=== PATIENT | male | born 1945 | race Caucasian/White ===

== ENCOUNTER 2016-07-10 07:15 | Inpatient (IN) | payer OTHER ==
[2016-07-05 10:00] LABS: BASOPHILS 0.2 %; BASOPHILS ABSOLUTE 0.01 10/3/uL (0.0-0.16); EOSINOPHILS 3.1 %; HEMATOCRIT 47.7 % (40.0-51.0); IMMATURE GRANULOCYTES 0.2 %; IMMATURE GRANULOCYTES ABSOLUTE 0.01 10/3/uL (0.0-0.11); LYMPHOCYTES 29.2 %; LYMPHOCYTES ABSOLUTE 1.89 10/3/uL (0.67-4.30); MEAN CORPUS HGB CONC 33.5 g/dL (32.0-36.0); MEAN CORPUSCULAR VOLUME 92.4 fL (80-100); MEAN PLATELET VOLUME 10.2 fL (9.2-13.0); MONOCYTES 7.1 %; MONOCYTES ABSOLUTE 0.46 10/3/uL (0.21-1.20); NEUTROPHILS 60.2 %; PLATELET COUNT 336 10/3/uL (150-400); RBC DISTRIBUTION WIDTH 13.1 % (12.0-16.0); RED CELL COUNT 5.16 10/6/uL (4.7-6.1); WHITE BLOOD CELLS 6.5 10/3/uL (4.5-10.5)
[2016-07-05 10:01] LABS: MANUAL DIFF NO %
[2016-07-05 10:07] LABS: PROTIME (NOT ORD) 13.4 SEC (12.0-14.5)
[2016-07-05 10:12] LABS: BUN (BLOOD UREA NITROGEN) 17 MG/DL (6-23); CALCIUM, SERUM 8.7 MG/DL (8.5-10.4); CHLORIDE, SERUM 104 MMOL/L (96-112); CO2 (CARBON DIOXIDE) 29 MMOL/L (24-34); CREATININE 1.27 MG/DL (0.70-1.30); GFR AFRICAN AMERICAN 65 ML/MIN (>=60); GFR NON AFRICAN AMERICAN 56 ML/MIN (>=60); GLUCOSE, SERUM 91 MG/DL (60-99); POTASSIUM, SERUM 4.6 MMOL/L (3.5-5.3); SODIUM, SERUM 140 MMOL/L (135-148)
--- NOTE | ~2016-07-10 | DS ---
Discharge Summary [facility] [address] [place]. [address] NAME: CHRISTIAN JACOBS : 45 STATUS : DIS IN PAT#: [id number] AGE: 71 ADM/REG DATE : 07/10/16 MR#: [id number] REPORT SERV DATE: 07/25/16 DICTATED BY: TOM BRUNNER DATE: 07/24/16 REPORT STATUS : Draft TRANSCRIBED BY: FRED DATE: 07/24/16 Data Collection from hospitalization DISCHARGE DIAGNOSES: 1. 90% stenosis of right internal carotid artery, status post endarterectomy, status post right internal carotid artery stent. 2. Right femoral pseudoaneurysm, status post right common femoral artery stent. 3. Former smoker. 4. History of transient ischemic attacks. 5. Coronary artery disease, status post coronary artery bypass grafting. 6. History of myocardial infarction. 7. History of atrial fibrillation. 8. Peripheral arterial disease. 9. Chronic obstructive pulmonary disease. 10.History of alcohol abuse. CONSULTATIONS: Kelly Yang M.D. PROCEDURES PERFORMED: 1. Arch aortogram with right common carotid artery catheterization and angiography, right internal carotid artery distal embolic protection filter was 5 mm AngioGuard, placement of right internal carotid artery stent primary 7 x 30 with secondary angioplasty 4 x 2 balloon dilating to 4.2 mm on 07/10/2016. 2. Aortogram, right femoral angiogram, 6 x 5 cm Viabahn stent placement in the right common femoral artery, balloon angioplasty 5 x 60 mm balloon in the right common femoral artery on 07/13/2016. 3. Right groin Doppler ultrasound on 07/11/2016. 4. Right groin Doppler ultrasound on 07/12/2016. MEDICATIONS: Aspirin 81 mg daily, Lipitor 40 mg daily, Coreg 3.125 mg twice a day, Plavix 75 mg daily, and Percocet 5/325 one tablet every four hours as needed. CONDITION AT DISCHARGE: Stable. DISPOSITION: The patient was discharged home on a low-sodium, low-cholesterol diet with activities as instructed. He would follow up with Dr. Tom Brunner two to four weeks following discharge. He would follow up with his primary care physician two weeks following discharge. HOSPITAL COURSE: This is a 71-year-old man who presented with evidence of high-grade right internal carotid artery obstruction, status post carotid endarterectomy in the remote past. Recommendations were made for angiography to help further define the carotid system with potential for endovascular repair. Treatment options were discussed and it was elected to proceed with surgical intervention. He was admitted to the hospital at this time for further evaluation and treatment. Upon admission, the patient was taken to the endovascular operating room where he underwent the above-mentioned procedure. He tolerated this well, and there were no complications. Discharge Summary [address] [place]. [address] NAME: CHRISTIAN JACOBS : 45 STATUS : DIS IN PAT#: [id number] AGE: 71 ADM/REG DATE : 07/10/16 MR#: [id number] REPORT SERV DATE: 07/25/16 DICTATED BY: TOM BRUNNER DATE: 07/24/16 REPORT STATUS : Draft TRANSCRIBED BY: FRED DATE: 07/24/16 The patient was seen in consultation by Dr. Kelly Yang regarding atrial fibrillation and postop carotid artery stenting. Postoperatively, the patient had gone into atrial fibrillation with rapid ventricular response. With intravenous Cardizem drip, he went back into a sinus rhythm. The patient has a history of coronary artery disease and a history of coronary artery bypass grafting in 2008 after he suffered a myocardial infarction. He had undergone two-vessel coronary artery bypass by Dr. Black. He had been seen at that time by Dr. Nelson. He was subsequently followed at the [facility] and by his primary care physician and had not seen a delicatessen goods stock clerk recently. He has underlying COPD with a long history of smoking of three packs per day up until 2008. He also has a history of alcohol abuse. He has advanced peripheral artery disease with some weakness in the lower extremities and has some pending procedure in the lower extremities also. He has a history of remote CVA in 2008. He reportedly is able to walk without any support. He denied any recent chest pain, palpitations, or syncope. He does have some mild dyspnea on exertion. His electrolytes on 07/05/2016 as well as chest x-ray were normal. At that time, he was in a sinus rhythm. Hemoglobin at this time was 13.7. He was currently in a normal sinus rhythm. The patient was going to be continued on intravenous heparin for now. Aspirin and Plavix were continued. We were going to check his electrolytes. TSH would be checked as well as echocardiogram and electrocardiogram. He was going to be started on Toprol-XL. Statin therapy was going to be continued. It was felt that he would likely benefit from long-term anticoagulation. On postop day #1, he had no chest pain. He was stable from a cardiac standpoint. He remained in a normal sinus rhythm. Toprol-XL was decreased. The patient had gotten out of bed that morning and felt a "pop" in the right groin (access site). He became hypotensive. Pressure was held for 45 minutes. A fluid bolus was given. He had no neurologic symptoms. Right groin Doppler ultrasound was performed. Findings were compatible with right groin pseudoaneurysm, measuring up to 1.7 x 1 x 3 cm with a neck measuring 0.16 cm in width by 0.29 cm in length. This appeared to be supplied by the right common femoral artery. No AV fistula was identified in the right groin region. On 08/01/2016, he had no palpitations or chest pain. Right groin Doppler ultrasound was performed to recheck the right groin pseudoaneurysm. There was a similar right groin pseudoaneurysm supplied by the right common femoral artery measuring up to 2 x 0.7 x 1.9 cm, the neck measured up to 0.16 cm in width by 0.2 cm in length. Again, this appeared to be supplied by the right common femoral artery. On 07/13/2016, it was felt that the patient would need to undergo right femoral pseudoaneurysm repair including stent placement open and observation. The patient agreed to proceed. He was taken to the operating room by Dr. Tomeka Cavazos where he underwent the above-mentioned procedures. He tolerated this well, and there were no complications. Discharge planning was performed. On 07/14/2016, Plavix, aspirin, and Percocet were continued. Discharge instructions were given. Due to his improved and stable condition, he was discharged home with the above-stated instructions. Information collected by: Katherine Newell I submit the above information as my discharge summary. TG/MODL Discharge Summary [place] [id number] [facility] [place] [place]. [address] NAME: CHRISTIAN JACOBS GIA : 45 STATUS : DIS IN PAT#: [id number] AGE: 71 ADM/REG DATE : 07/10/16 MR#: [id number] REPORT SERV DATE: 07/25/16 DICTATED BY: TOM BRUNNER DATE: 07/24/16 REPORT STATUS : Draft TRANSCRIBED BY: FRED DATE: 07/24/16 Tom Brunner M.D. / [id number] CC: Shine Murillo M.D. CASE TEDDER, MD
--- NOTE | ~2016-07-10 | CN ---
Consultation Report [facility] [address] [place]. [address] NAME: CHRISTIAN JACOBS : 45 STATUS : ADM IN PAT#: [id number] AGE: 71 ADM/REG DATE : 07/10/16 MR#: [id number] REPORT SERV DATE: 07/11/16 DICTATED BY: GERARDO HOPE DATE: 07/10/16 REPORT STATUS : Draft TRANSCRIBED BY: MODL DATE: 07/10/16 CARDIOLOGY CONSULT DATE OF CONSULTATION: REFERRING REASON: Atrial fibrillation post carotid endarterectomy. HISTORY OF PRESENT ILLNESS: This is a 71-year-old white gentleman who is very poor historian, but who just underwent today right carotid endarterectomy for critical stenosis by Dr. Brunner. Postoperatively, he went to AFib with RVR. With intravenous Cardizem drip, he went back to sinus rhythm. He is very poor historian, but I have reviewed limited records from [facility] and from Dr. Brunner. He has had known coronary artery disease, history of CABG in 2008, after he suffered myocardial infarction. He underwent two vessel CABG by Dr. Black. At that time, he has been seen by Dr. Nelson. Subsequently being followed at the [facility] and by his primary care physician, he has not seen any radio television technical director recently. He has underlying COPD with long history of smoking history three packs a day until 2008, for 24 years. He also has some history of alcohol abuse. The patient has advanced peripheral artery disease with some weakness in his lower extremities and had some pending procedure in lower extremities also. He has a remote history of CVA in 2008. He reportedly is walking without any support. Denies any recent chest pain, palpitation, or syncope. He has some mild dyspnea on exertion. His electrolytes in 07/05/2016, as well as the chest x-ray were normal. At that time, he was in sinus rhythm. Today, hemoglobin is 13.7. Electrolytes are not obtained. PAST MEDICAL HISTORY: 1. Coronary artery disease. 2. History of CA in 2008, with subsequent two-vessel CABG by Dr. Black. 3. Peripheral artery disease is now status post right carotid endarterectomy by Dr. Brunner. 4. COPD. 5. Remote history of smoking dependency. There is history of alcohol abuse. SOCIAL HISTORY: The patient is . He quit smoking in 2008, smoked 24 years 3 packs a day. He also has previously problem with alcoholism, but denies drinking alcohol recently. He walks without any support. He has been followed at the [facility]. FAMILY HISTORY: Negative for sudden cardiac or premature coronary artery disease in family. HOME MEDICATIONS: Aspirin 81 mg once a day, atorvastatin 40 mg once a day, Plavix 75 mg once a day. PHYSICAL EXAMINATION: GENERAL: No acute distress. Elderly gentleman who looks older than his biological age. VITAL SIGNS: Blood pressure 150/52, heart rate 79 and regular. Consultation Report [place] [id number] [facility] [place]. [address] NAME: CHRISTIAN JACOBS : 45 STATUS : ADM IN [facility]#: [id number] AGE: 71 ADM/REG DATE : 07/10/16 MR#: [id number] REPORT SERV DATE: 07/11/16 DICTATED BY: GERARDO HOPE DATE: 07/10/16 REPORT STATUS : Draft TRANSCRIBED BY: FRED DATE: 07/10/16 HEENT - Pupils reactive to light and accommodation. Moist mucosa membrane. NECK: No JVD. Normal carotid upstroke. No carotid bruits. LUNGS: Decreased breath sounds, bibasilar, but no crackles. COR: Normal S1, S2. No S3 or S4. No significant rub or murmurs. ABDOMEN: Obese, distended, nontender. EXTREMITIES: Lower extremity, decreased pedal pulses bilaterally, but no edema. SKIN: Warm with normal turgor. MS - No kyphosis. NEURO/PSY - Alert and oriented. Nonfocal. DATA: Hemoglobin 13.7 on monitor. He is now in normal sinus rhythm. Previously, he has been in AFib with RVR. Electrocardiogram on 07/03/2016, revealed normal sinus rhythm at 71 beats per minute with septal myocardial infarction. ASSESSMENT AND PLAN: 1. Episode of postoperative atrial fibrillation, normal sinus rhythm currently. 2. Status post right carotid endarterectomy by Dr. Brunner for critical stenosis. 3. Remote history of cerebrovascular accident. 4. Coronary artery disease with remote history of coronary artery bypass graft. The patient will be continued on intravenous heparin for now. He will continue aspirin and Plavix. He will have electrolytes checked, TSH checked, echocardiogram, and electrocardiogram in the morning. We will start him on Toprol-XL 25 mg once a day. We will continue statin therapy. Likely, he may benefit from long-term anticoagulation. We may consider newer agents if okay with Dr. Brunner. We will follow the patient with you. JONNATHAN/FRED Gerardo Hope M.D. / [id number] CC: Tom Brunner M.D.
--- NOTE | ~2016-07-10 | OP ---
Record Of Operation [facility] [address] [place]. [address] NAME: ALCIDES IGNACIO : 45 STATUS : ADM IN PAT#: [id number] AGE: 71 ADM/REG DATE : 07/10/16 MR#: [id number] REPORT SERV DATE: 07/14/16 DICTATED BY: DATE: REPORT STATUS : Draft TRANSCRIBED BY: MODL DATE: 07/13/16 DATE OF PROCEDURE: 07/13/2016 PREOPERATIVE DIAGNOSIS: Right femoral pseudoaneurysm. POSTOPERATIVE DIAGNOSIS: Right femoral pseudoaneurysm. PROCEDURES: 1. Aortogram. 2. Right femoral angiogram. 3. 6 x 5 cm Viabahn stent placement in the right common femoral artery. 4. Balloon angioplasty, 5 x 60 mm balloon in the right common femoral artery. SURGEON: Tomeka Cavazos MD ANESTHESIA: Local MAC. IV FLUIDS: 600 mL. EBL: 5 mL. SPECIMENS: None. COMPLICATION: None. BRIEF HISTORY: Alcides Ignacio is a 71-year-old gentleman who underwent stenting of his carotid artery three days ago. He developed atrial fibrillation postop and was heparinized and then developed a right femoral pseudoaneurysm. There was increase in size to 2.4 cm. He was considering the risk and benefits of repair including stent placement open and observation. He elected to proceed with endovascular treatment. DESCRIPTION OF PROCEDURE: The patient was brought to the operative room, placed in the supine position on the operating room table. Anesthesia was introduced and his bilateral groins were prepped and draped in usual sterile fashion. A time-out was performed to identify correct patient, procedure, position, and location. The patient did receive 2 g of Ancef antibiotic. Using ultrasound guidance access, the left common femoral artery was identified and accessed. The skin was anesthetized with local anesthetic. A micropuncture wire and sheath were then placed through which a YoPro Globalson wire was used to upsize to a 6- Vietnamese short sheath. The UF catheter was placed at the aortic bifurcation. An aortogram was performed which demonstrated patent iliac systems bilaterally. A stiff guidewire was then placed over the aortic bifurcation into the right profunda artery over which a long 6, 45 Vietnamese sheath was exchanged for the short down into the right external iliac artery. Isolated femoral angiogram was obtained in multiple views which demonstrated pseudoaneurysm in the mid common femoral artery. A V18 wire was then exchanged through a TrailBlazer catheter over which a 6 mm x 5 cm Viabahn stent was placed and deployed within the right common femoral artery preserving the profunda artery. Followup angiogram demonstrated Record Of Operation [place] [address] [place]. [address] NAME: ALCIDES IGNACIO : 45 STATUS : ADM IN PAT#: [id number] AGE: 71 ADM/REG DATE : 07/10/16 MR#: [id number] REPORT SERV DATE: 07/14/16 DICTATED BY: DATE: REPORT STATUS : Draft TRANSCRIBED BY: MODL DATE: 07/13/16 improvement of the flow within the pseudoaneurysm, but still some flow. This was then balloon angioplastied with a 5 x 6 cm balloon with resolution of flow within the pseudoaneurysm. The 6-Vietnamese sheath was then withdrawn back into the left external iliac artery and then femoral angiogram was obtained. On this side, the common femoral artery is very calcified and small, thus it was elected to have full pressure. The sheath was removed and pressure was held for 20 minutes, and a pressure dressing was placed. The patient was then transferred to the recovery room in stable condition having tolerated the procedure well and there are no apparent complications. [facility]/FRED Tomeka Cavazos MD / [id number] CC: Tom Brunner M.D.
--- NOTE | ~2016-07-10 | OP ---
Record Of Operation [facility] [address] [place]. [address] NAME: CHRISTIAN JACOBS : 45 STATUS : ADM IN PAT#: [id number] AGE: 71 ADM/REG DATE : 07/10/16 MR#: [id number] REPORT SERV DATE: 07/10/16 DICTATED BY: TOM BRUNNER DATE: 07/10/16 REPORT STATUS : Draft TRANSCRIBED BY: MODL DATE: 07/10/16 DATE OF PROCEDURE: 07/10/2016 PREPROCEDURE DIAGNOSIS: High-grade recurrent right internal carotid artery obstruction. POSTOPERATIVE DIAGNOSIS: A 90% stenosis of the right internal carotid artery status post endarterectomy. PROCEDURES PERFORMED: 1. Arch aortogram with right common carotid artery catheterization and angiography. 2. Right internal carotid artery distal embolic protection filter with 5 mm AngioGuard. 3. Placement of a right internal carotid artery stent primary 7 x 30 with secondary angioplasty 4 x 2 balloon dilating to 4.2 mm. ANESTHESIA: Local with MAC. COMPLICATIONS: None. INDICATION FOR PROCEDURE: Secondary to this very pleasant 71-year-old gentleman presenting with evidence of high-grade right internal carotid artery obstructions, status post carotid endarterectomy in the remote past, recommendations were made for angiography to help further define the carotid system with potential for endovascular repair. Risks and benefits were discussed. Consent was obtained. DETAILS OF PROCEDURE: The patient was brought to the endovascular operating room, placed in supine position, and prepped and draped in routine sterile fashion to the bilateral groin region. The left femoral artery was then cannulated with a micropuncture needle followed by a wire and sheath. The catheter was then advanced into the arch of the aorta and 30-degree SCOTTISH arch arteriogram was then performed defining widely patent innominate, left common carotid, and left subclavian. Please note, the 5000 units of heparin were given and allowed to circulate. Next, the right common carotid artery was then cannulated with a Berenstein catheter. The arteriogram minute in the TORRES position defined evidence of a very tight 90%- 95% internal carotid artery obstruction. The sheath was then placed, and then over this, an AngioGuard was then passed into position through the stenosis into the distal internal carotid artery and the filter was deployed. Primary carotid stenting was then performed with a 7 x 30 stent to treating only the internal carotid artery. Post stent deployment, angioplasty was then performed with a 4 x 2 balloon dilating to 4.2 mm. With this completed, the patient remained neurologically intact and completion imaging showed wide patency of the stent. The filter was then removed. There was found to be minimally positive for debris. Next, the right groin was then arteriogramed and a StarClose was chosen for closure of the puncture site. The patient tolerated this well. Neurologically intact during the procedure. CL/MODL Record Of [address] [address] NAME: CHRISTIAN JACOBS : 45 STATUS : ADM IN [facility]#: [id number] AGE: 71 ADM/REG DATE : 07/10/16 MR#: [id number] REPORT SERV DATE: 07/10/16 DICTATED BY: TOM BRUNNER DATE: 07/10/16 REPORT STATUS : Draft TRANSCRIBED BY: FRED DATE: 07/10/16 Tom Brunner M.D. / [id number] CC: Tom Brunner M.D.
[~2016-07-10 07:15] MED LIST: ASAB PO; ASAEC PO; CELEXA20 PO; COREG12 PO; COREG6 PO; DENIES HOME MEDS; LIPITOR40 PO; LORTAB 5 PO; PLAVIX PO; PRAVAC PO
[2016-07-10 12:08] LABS: HEMOGLOBIN 13.7 g/dL (13.6-17.8)
[2016-07-10 12:15] LABS: HEMATOCRIT 41.2 % (40.0-51.0)
[2016-07-11 03:51] LABS: BUN (BLOOD UREA NITROGEN) 17 MG/DL (6-23); CALCIUM, SERUM 8.3 MG/DL (8.5-10.4); CHLORIDE, SERUM 108 MMOL/L (96-112); CREATININE 0.93 MG/DL (0.70-1.30); GFR AFRICAN AMERICAN 95 ML/MIN (>=60); GFR NON AFRICAN AMERICAN 82 ML/MIN (>=60); GLUCOSE, SERUM 89 MG/DL (60-99); POTASSIUM, SERUM 4.2 MMOL/L (3.5-5.3); SODIUM, SERUM 141 MMOL/L (135-148)
[2016-07-11 03:53] LABS: CO2 (CARBON DIOXIDE) 22 MMOL/L (24-34)
[2016-07-11 04:00] LABS: BUN (BLOOD UREA NITROGEN) 18 MG/DL (6-23); CALCIUM, SERUM 8.1 MG/DL (8.5-10.4); CHLORIDE, SERUM 107 MMOL/L (96-112); CO2 (CARBON DIOXIDE) 22 MMOL/L (24-34); CREATININE 1.09 MG/DL (0.70-1.30); GFR AFRICAN AMERICAN 79 ML/MIN (>=60); GFR NON AFRICAN AMERICAN 68 ML/MIN (>=60); POTASSIUM, SERUM 4.3 MMOL/L (3.5-5.3); SODIUM, SERUM 138 MMOL/L (135-148)
[2016-07-11 04:02] LABS: GLUCOSE, SERUM 136 MG/DL (60-99)
[2016-07-11 09:11] LABS: BASOPHILS 0.1 %; BASOPHILS ABSOLUTE 0.01 10/3/uL (0.0-0.16); EOSINOPHILS 0 %; HEMOGLOBIN 12.3 g/dL (13.6-17.8); IMMATURE GRANULOCYTES 0.3 %; IMMATURE GRANULOCYTES ABSOLUTE 0.05 10/3/uL (0.0-0.11); LYMPHOCYTES 4.1 %; LYMPHOCYTES ABSOLUTE 0.69 10/3/uL (0.67-4.30); MEAN CORPUS HGB CONC 33.5 g/dL (32.0-36.0); MEAN CORPUSCULAR HEMOGLOB 30.8 pg (26.0-34.0); MEAN CORPUSCULAR VOLUME 91.8 fL (80-100); MEAN PLATELET VOLUME 10.3 fL (9.2-13.0); MONOCYTES 6.2 %; MONOCYTES ABSOLUTE 1.05 10/3/uL (0.21-1.20); NEUTROPHILS 89.3 %; NEUTROPHILS ABSOLUTE 15.03 10/3/uL (2.02-8.40); PLATELET COUNT 305 10/3/uL (150-400); RBC DISTRIBUTION WIDTH 12.7 % (12.0-16.0)
[2016-07-11 09:14] LABS: HEMATOCRIT 36.7 % (40.0-51.0); MANUAL DIFF NO %; WHITE BLOOD CELLS 16.8 10/3/uL (4.5-10.5)
[2016-07-11 14:02] LABS: HEMOGLOBIN 11.8 g/dL (13.6-17.8)
[2016-07-12 10:48] LABS: BASOPHILS 0.1 %; BASOPHILS ABSOLUTE 0.01 10/3/uL (0.0-0.16); EOSINOPHILS 0.4 %; EOSINOPHILS ABSOLUTE 0.07 10/3/uL (0.0-0.53); HEMATOCRIT 34.8 % (40.0-51.0); HEMOGLOBIN 11.7 g/dL (13.6-17.8); IMMATURE GRANULOCYTES 0.3 %; IMMATURE GRANULOCYTES ABSOLUTE 0.04 10/3/uL (0.0-0.11); LYMPHOCYTES 8.2 %; LYMPHOCYTES ABSOLUTE 1.29 10/3/uL (0.67-4.30); MANUAL DIFF NO %; MEAN CORPUS HGB CONC 33.6 g/dL (32.0-36.0); MEAN CORPUSCULAR VOLUME 92.3 fL (80-100); MEAN PLATELET VOLUME 10.6 fL (9.2-13.0); MONOCYTES 9.5 %; MONOCYTES ABSOLUTE 1.49 10/3/uL (0.21-1.20); NEUTROPHILS 81.5 %; NEUTROPHILS ABSOLUTE 12.82 10/3/uL (2.02-8.40); PLATELET COUNT 300 10/3/uL (150-400); RBC DISTRIBUTION WIDTH 12.8 % (12.0-16.0); RED CELL COUNT 3.77 10/6/uL (4.7-6.1); WHITE BLOOD CELLS 15.7 10/3/uL (4.5-10.5)
[2016-07-12 10:58] LABS: BUN (BLOOD UREA NITROGEN) 24 MG/DL (6-23); CALCIUM, SERUM 8.8 MG/DL (8.5-10.4); CHLORIDE, SERUM 105 MMOL/L (96-112); CO2 (CARBON DIOXIDE) 27 MMOL/L (24-34); CREATININE 1.12 MG/DL (0.70-1.30); GFR AFRICAN AMERICAN 76 ML/MIN (>=60); GFR NON AFRICAN AMERICAN 66 ML/MIN (>=60); GLUCOSE, SERUM 136 MG/DL (60-99); POTASSIUM, SERUM 4.5 MMOL/L (3.5-5.3); SODIUM, SERUM 139 MMOL/L (135-148)
[2016-07-12 12:30] LABS: A/G RATIO 0.8 (0.7-1.9); ALBUMIN 2.6 G/DL (3.5-5.0); ALKALINE PHOSPHATASE 76 U/L (45-117); GLOBULIN 3.2 G/DL (2.5-4.1); SGOT(AST) 10 U/L (5-40); SGPT(ALT) 11 U/L (5-65); TOTAL BILIRUBIN 0.7 MG/DL (0-1.2); TOTAL PROTEIN 5.8 G/DL (6.0-8.5)
[2016-07-13 04:36] LABS: BASOPHILS 0.1 %; BASOPHILS ABSOLUTE 0.01 10/3/uL (0.0-0.16); EOSINOPHILS 1.7 %; EOSINOPHILS ABSOLUTE 0.25 10/3/uL (0.0-0.53); HEMATOCRIT 34.5 % (40.0-51.0); HEMOGLOBIN 11.3 g/dL (13.6-17.8); IMMATURE GRANULOCYTES 0.3 %; IMMATURE GRANULOCYTES ABSOLUTE 0.04 10/3/uL (0.0-0.11); LYMPHOCYTES 13.9 %; MEAN CORPUS HGB CONC 32.8 g/dL (32.0-36.0); MEAN CORPUSCULAR HEMOGLOB 30.2 pg (26.0-34.0); MEAN CORPUSCULAR VOLUME 92.2 fL (80-100); MEAN PLATELET VOLUME 10.9 fL (9.2-13.0); MONOCYTES 10.3 %; MONOCYTES ABSOLUTE 1.55 10/3/uL (0.21-1.20); NEUTROPHILS 73.7 %; NEUTROPHILS ABSOLUTE 11.11 10/3/uL (2.02-8.40); PLATELET COUNT 325 10/3/uL (150-400); RED CELL COUNT 3.74 10/6/uL (4.7-6.1); WHITE BLOOD CELLS 15.1 10/3/uL (4.5-10.5)
[2016-07-13 04:38] LABS: MANUAL DIFF NO %
[2016-07-13 04:48] LABS: BUN (BLOOD UREA NITROGEN) 22 MG/DL (6-23); CALCIUM, SERUM 8.8 MG/DL (8.5-10.4); CHLORIDE, SERUM 105 MMOL/L (96-112); CO2 (CARBON DIOXIDE) 31 MMOL/L (24-34); CREATININE 1.09 MG/DL (0.70-1.30); GFR AFRICAN AMERICAN 79 ML/MIN (>=60); GFR NON AFRICAN AMERICAN 68 ML/MIN (>=60); GLUCOSE, SERUM 134 MG/DL (60-99); POTASSIUM, SERUM 4.5 MMOL/L (3.5-5.3); SODIUM, SERUM 141 MMOL/L (135-148)
[2016-07-14 03:42] LABS: BASOPHILS 0.2 %; BASOPHILS ABSOLUTE 0.02 10/3/uL (0.0-0.16); EOSINOPHILS 4.6 %; HEMATOCRIT 31.8 % (40.0-51.0); HEMOGLOBIN 10.6 g/dL (13.6-17.8); IMMATURE GRANULOCYTES 0.3 %; IMMATURE GRANULOCYTES ABSOLUTE 0.03 10/3/uL (0.0-0.11); LYMPHOCYTES 16.7 %; LYMPHOCYTES ABSOLUTE 1.81 10/3/uL (0.67-4.30); MEAN CORPUS HGB CONC 33.3 g/dL (32.0-36.0); MEAN CORPUSCULAR HEMOGLOB 30.8 pg (26.0-34.0); MEAN CORPUSCULAR VOLUME 92.4 fL (80-100); MEAN PLATELET VOLUME 10.6 fL (9.2-13.0); MONOCYTES 9.1 %; MONOCYTES ABSOLUTE 0.98 10/3/uL (0.21-1.20); NEUTROPHILS 69.1 %; NEUTROPHILS ABSOLUTE 7.47 10/3/uL (2.02-8.40); PLATELET COUNT 302 10/3/uL (150-400); RED CELL COUNT 3.44 10/6/uL (4.7-6.1); WHITE BLOOD CELLS 10.8 10/3/uL (4.5-10.5)
[2016-07-14 03:43] LABS: MANUAL DIFF NO %
[2016-07-14 03:54] LABS: CALCIUM, SERUM 8.1 MG/DL (8.5-10.4); CHLORIDE, SERUM 106 MMOL/L (96-112); CO2 (CARBON DIOXIDE) 29 MMOL/L (24-34); CREATININE 1.01 MG/DL (0.70-1.30); GFR AFRICAN AMERICAN 86 ML/MIN (>=60); GFR NON AFRICAN AMERICAN 74 ML/MIN (>=60); GLUCOSE, SERUM 115 MG/DL (60-99); SODIUM, SERUM 140 MMOL/L (135-148)
[2016-07-14 03:56] LABS: BUN (BLOOD UREA NITROGEN) 17 MG/DL (6-23)
[2016-07-14] MEDS ORDERED: COREG3 PO (09:30)
[2016-07-14] MEDS ORDERED: PCET PO (09:30)
== END 2016-07-14 13:00 | disposition home or self-care (01) | DRG 35 ==
LOC: SDC 07:15 → SDC/OF 11:02 → CVICU 13:10
PROVIDERS: Specialist
PROC: 037K3DZ Dilation of Right Internal Carotid Artery with Intraluminal Device, Percutaneous Approach (ICD-10-PCS; principal; 2016-07-10 10:00)
DX: I65.21 Occlusion and stenosis of right carotid artery (principal); I97.620 Postprocedural hemorrhage of a circulatory system organ or structure following other procedure; I95.9 Hypotension, unspecified; I97.89 Other postprocedural complications and disorders of the circulatory system, not elsewhere classified; J44.9 Chronic obstructive pulmonary disease, unspecified; I25.10 Atherosclerotic heart disease of native coronary artery without angina pectoris; I25.2 Old myocardial infarction; I73.9 Peripheral vascular disease, unspecified; Z87.891 Personal history of nicotine dependence; Z95.1 Presence of aortocoronary bypass graft; Z86.73 Personal history of transient ischemic attack (TIA), and cerebral infarction without residual deficits; Z79.82 Long term (current) use of aspirin; Z79.899 Other long term (current) drug therapy; Z79.02 Long term (current) use of antithrombotics/antiplatelets
CPT/HCPCS: 36221; 36246; 36415; 37215; 37236; 71020; 75625; 75710; 80048; 80053; 83735; 84443; 85014; 85018; 85025; 85610; 85730; 86850; 86900; 86901; 86920; 93005; 93925; 93926; A9270-GY; C1725; C1769; C1874; C1876; C1884; C1894; C8929; J0690; J2370; J2405; J3010; Q9957; Q9966